=== PATIENT | female | born 1955 | race Caucasian/White ===

== ENCOUNTER → 2017-01-02 | Outpatient (CLI) | payer OTHER ==
--- NOTE | 2017-01-02 08:00 | US ---
EXAMINATION TYPE: US abdomen complete DATE OF EXAM: 01/02/2017 COMPARISON: NONE CLINICAL HISTORY: Epigastric pain R10.13. Abd pain with cramping for 2 years EXAM MEASUREMENTS: Liver Length: 13.3 cm Gallbladder Wall: 0.3 cm CBD: 0.5 cm Spleen: 10.5 cm Right Kidney: 9.6 x 4.3 x 3.7 cm Left Kidney: 9.8 x 3.4 x 4.1 cm Pancreas: wnl Liver: intercostal views due to bowel gas, wnl Gallbladder: wall thickening is upper limits of normal and internal debris seen Evidence for sonographic Hines's sign: no CBD: wnl Spleen: wnl Right Kidney: wnl Left Kidney: wnl Upper IVC: wnl Abd Aorta: wnl The liver is homogenous. The intrahepatic portion of the IVC and proximal abdominal aorta are within normal limits. There is no evidence of cholelithiasis. Common bile duct is unremarkable. The visu alized portions of the pancreas are homogenous. The spleen is unremarkable. Kidneys are symmetric a nd free of hydronephrosis. No renal lesions are seen. IMPRESSION: No sonographic evidence of cholelithiasis or cholecystitis. Unremarkable abdominal ultras ound.
== END | disposition home or self-care (01) ==
LOC: RADUSWWP 06:51
PROVIDERS: ATTEND Family Medicine
DX: R10.13 Epigastric pain (principal)
CPT/HCPCS: 76700

== ENCOUNTER → 2017-01-26 | Outpatient (CLI) | payer OTHER ==
[2017-01-26 13:57] LABS: Bilirubin, Delta 0.2 mg/dL (0.0-0.2); Total Bilirubin 0.5 mg/dL (0.2-1.3); Total Protein 7.3 g/dL (6.3-8.2)
== END | disposition home or self-care (01) ==
LOC: LABWHC1 12:55
PROVIDERS: ATTEND Surgery
DX: R10.9 Unspecified abdominal pain (principal)
CPT/HCPCS: 36415; 80076; 82150; 83690

== ENCOUNTER 2017-02-13 08:13 | Day surgery (SDC) | payer OTHER ==
[2017-02-10 09:08] VITALS: BMI 32.3
[~2017-02-13 08:13] MED LIST: LACTATED RINGERS 1,000 ML IV SCH; LIDOCAINE 1% 20 ML VIAL (10MG/ML) FOR IV START INTRADERMA PRN
[2017-02-13 08:34] VITALS: RESP 16; TEMP 97.7
[2017-02-13] MEDS ORDERED: ONDANSETRON 4 MG/2 ML VIAL ONE (09:36)
[2017-02-13] MEDS ORDERED: MIDAZOLAM 2 MG/2 ML VIAL ONE (09:36)
[2017-02-13] MEDS ORDERED: PROPOFOL 10 MG/ML 20 ML VIAL IV ONE (09:36)
[2017-02-13] MEDS ORDERED: LIDOCAINE 1% INJ 10MG/ML (20 ML MDV) ONE (09:36)
--- NOTE | 2017-02-13 10:05 | P.PCN ---
Date of Procedure: 02/13/17 Procedure(s) Performed: Procedure: Esophagogastroduodenoscopy and biopsy. Preoperative diagnosis: Epigastric pain and history of reflux. Postoperative diagnosis: 1. Small sliding hiatal hernia with no obvious esophagitis or complicated reflux disease. 2. Mild antral gastritis. 3. Multiple biopsies obtained from the duodenum, antrum and esophagus. Preparation sedation: Was provided by anesthesia. Brief clinical history: The patient is a 61-year-old female with history of reflux who continues to have issues with epigastric pain and nonspecific upper abdominal symptoms. She was found to have sludge in the gallbladder and a cholecystectomy is planned. The patient was referred for this evaluation prior to her surgery. Procedure: With the patient on her left lateral decubitus position and after informed consent and adequate sedation, I passed the Olympus-GIF 160 video upper endoscope through the cricopharyngeus down the esophagus. GE junction was around 39 cm from the incisors and there was a small sliding hiatal hernia. The esophagus did not show any obvious esophagitis or complicated reflux disease. The endoscope was then passed into the stomach which was insufflated with air and inspected in detail including the retroflex view in the cardia. There was some mottling and erythema consistent with mild gastritis but no ulcers or erosions. Pyloric channel, duodenal bulb, post bulbar area and descending duodenum appeared within normal limits. I obtained multiple biopsies from the duodenum, antrum and esophagus then the endoscope was withdrawn. The patient tolerated the procedure well. Plan: The patient was reassured. Will await pathology results. She will follow -up with you as planned.
[2017-02-13 10:43] VITALS: BP 109/61; PULSE 44
== END 2017-02-13 11:00 | disposition home or self-care (01) ==
LOC: ORWHC2ENDO 08:13
DX: K21.0 Gastro-esophageal reflux disease with esophagitis (principal); K44.9 Diaphragmatic hernia without obstruction or gangrene; K20.0 Eosinophilic esophagitis; I48.91 Unspecified atrial fibrillation; Z79.01 Long term (current) use of anticoagulants; Z87.891 Personal history of nicotine dependence; Z79.899 Other long term (current) drug therapy
CPT/HCPCS: 88305; 88342; 43239; J2250; J2405; J2001; J2704

== ENCOUNTER → 2018-01-04 | Outpatient (CLI) | payer OTHER ==
[2018-01-04 10:21] LABS: HGB 13.8 gm/dL (11.4-16.0); MCH 29.8 pg (25.0-35.0); MCHC 33.5 g/dL (31.0-37.0); MCV 88.8 fL (80.0-100.0); Mean Platelet Volume 8.3; Platelet Count 169 k/uL (150-450); RBC 4.62 m/uL (3.80-5.40); RDW 13.6 % (11.5-15.5); WBC 5.2 k/uL (3.8-10.6)
[2018-01-04 10:40] LABS: Calcium 9.4 mg/dL (8.4-10.2); Potassium 4.2 mmol/L (3.5-5.1); Total Bilirubin 0.5 mg/dL (0.2-1.3); Total Protein 6.8 g/dL (6.3-8.2)
== END | disposition home or self-care (01) ==
LOC: LABWHC1 09:30
PROVIDERS: ATTEND Surgery
DX: K81.1 Chronic cholecystitis (principal)
CPT/HCPCS: 36415; 80053; 85027

== ENCOUNTER 2019-11-02 21:14 | Emergency (ER) | payer MEDICARE, OTHER ==
[2019-11-02] MEDS ORDERED: diphenhydrAMINE 50 MG CAP PO STA (21:49)
[2019-11-02] MEDS ORDERED: DEXAMETHASONE SOD PHOSPHATE 10 MG/ML 1 ML VIAL IM STA (21:49)
--- NOTE | 2019-11-02 21:52 | ED ---
Allergic Reaction HPI - General Source: patient, family Mode of arrival: ambulatory <Sandro Aguilera - Last Filed: 11/02/19 22:44> <Kathie Anderson - Last Filed: 11/11/19 00:03> - General Chief complaint: Allergic Reaction Stated complaint: Allergic reaction Time Seen by Provider: 11/02/19 21:29 - History of Present Illness Initial Comments: Patient is 64-year-old female presenting to emergency department chief complaint a rash. States the rash began yesterday on the arms and has been gradually moving proximally to her torso. States she woke up this morning is noted swelling and bilateral periorbital region along with a facial rash. Patient reports the rash is itchy but she has been able to alleviate some of discomfort with Benadryl. Denies odontophagia dysphagia or dyspnea. Denies any recent fevers or chills. States prior to the onset of symptoms, she was mixing topsoil and miracle grow without gloves. Denies any nausea vomiting diarrhea. (Sandro Aguilera) - Related Data Home Medications Medication Instructions Recorded Confirmed Metoprolol Tartrate [Lopressor] 12.5 mg PO QAM 01/19/18 11/08/19 Warfarin [Coumadin] 4 mg PO MOWESA 01/19/18 11/08/19 Warfarin [Coumadin] 6 mg PO SUTUTHFR 01/19/18 11/08/19 Neomyc/Bacit/Polymyx/Hydrocort 1 applic TOPICAL ONCE PRN 11/08/19 11/08/19 [Cortisporin Ointment] diphenhydrAMINE [Benadryl] 25 mg PO ONCE PRN 11/08/19 11/08/19 Previous Rx's Medication Instructions Recorded Famotidine [Pepcid] 20 mg PO BID #14 tablet 11/08/19 hydrOXYzine HCL [Atarax] 25 mg PO TID PRN #21 tab 11/08/19 predniSONE [Deltasone] 20 mg PO BID #14 tab 11/08/19 Allergies Allergy/AdvReac Type Severity Reaction Status Date / Time premed prior to anesthesia AdvReac Nausea & Uncoded 11/08/19 09:58 Vomiting,low b/p,low heart rate Review of Systems ROS Other: All systems not noted in ROS Statement are negative. <Sandro Aguilera - Last Filed: 11/02/19 22:44> ROS Other: All systems not noted in ROS Statement are negative. <Kathie Anderson Domingo - Last Filed: 11/11/19 00:03> ROS Statement: Those systems with pertinent positive or pertinent negative responses have been documented in the HPI. Past Medical History Past Medical History: Atrial Fibrillation Additional Past Medical History / Comment(s): gallbladder sludge,states "feels like I am bloated and gassy,uncomfortable rt upper abd quad." History of Any Multi-Drug Resistant Organisms: None Reported Past Surgical History: Cholecystectomy Additional Past Surgical History / Comment(s): BILAT TENNIS ELBOW REPAIR. CATARACTS BILAT. REPAIR OF HOLE IN RT EYE Past Anesthesia/Blood Transfusion Reactions: No Reported Reaction Additional Past Anesthesia/Blood Transfusion Reaction / Comment(s): no hx blood transfusion Past Psychological History: No Psychological Hx Reported Smoking Status: Former smoker Past Alcohol Use History: None Reported Past Drug Use History: None Reported - Past Family History Mother Family Medical History: No Reported History Sister(s) Family Medical History: Cancer Additional Family Medical History / Comment(s): blood CA <Sandro Aguilera - Last Filed: 11/02/19 22:44> General Exam Limitations: no limitations General appearance: alert, in no apparent distress Head exam: Present: atraumatic, normocephalic, normal inspection Eye exam: Present: normal appearance, PERRL, EOMI, other (Periorbital swelling) Pupils: Present: normal accommodation ENT exam: Present: normal exam, normal oropharynx, mucous membranes moist Neck exam: Present: normal inspection, full ROM Respiratory exam: Present: normal lung sounds bilaterally. Absent: respiratory distress, wheezes, rales Cardiovascular Exam: Present: regular rate, normal rhythm, normal heart sounds Extremities exam: Present: normal inspection, full ROM Back exam: Present: normal inspection, full ROM Neurological exam: Present: alert, oriented X3 Psychiatric exam: Present: normal affect, normal mood Skin exam: Present: warm, dry, intact, normal color <Sandro Aguilera - Last Filed: 11/02/19 22:44> Course Vital Signs 11/02/19 11/02/19 21:23 23:01 Temperature 98.2 F 98.1 F Pulse Rate 98 50 L Respiratory 18 16 Rate Blood Pressure 153/85 135/87 O2 Sat by Pulse 100 97 Oximetry Medical Decision Making <Sandro Aguilera - Last Filed: 11/02/19 22:44> <Kathie Anderson - Last Filed: 11/11/19 00:03> - Medical Decision Making Patient is 64-year-old female presenting to the emergency room with a chief complaint of a rash. This appears to be a papular rash that is itchy in nature, nonblanching. It initially started on the hands and moved proximally to the torso and is now on the face with some periorbital edema. No suspicion for periorbital or orbital cellulitis. I suspect is secondary to chemical exposure from topsoil and miracle grow mix. Patient given 10 mg of Decadron in the ED and Benadryl. On reevaluation patient reports improvement in symptoms. The erythema on the face has improved. The periorbital edema is also decreased. Patient will be discharged with a taper course of prednisone. Also advised to take Benadryl when necessary for itching. Patient is not in any respiratory distress. No signs of odontophagia dysphagia. Return parameters were thoroughly discussed with physician was understanding and agreeable. Case discussed with physician. (Sandro Aguilera) I was available for consultation in the emergency department. The history and physical exam were done by the midlevel provider. I was consulted for this patients care. I reviewed the case with the midlevel provider and based on their presentation of the patient, I agree with the assessment, medical decision making and plan of care as documented. Chart was dictated using [employer] dictation software. Attempts were made to correct any dictation errors however some typographical errors may persist. Patient was seen during a national state of emergency due to the Covid-19 pandemic. (Kathie Anderson) Disposition Is patient prescribed a controlled substance at d/c from ED?: No Time of Disposition: 22:41 <Sandro Aguilera - Last Filed: 11/02/19 22:44> <Kathie Anderson - Last Filed: 11/11/19 00:03> Clinical Impression: Allergic reaction to chemical substance Disposition: HOME SELF-CARE Condition: Stable Instructions (If sedation given, give patient instructions): Urticaria (ED) Additional Instructions: Continue taking prescribe medication. Return to emergency department if symptoms worsen. Referrals: Edson Gaviria MD [Primary Care Provider] - 1-2 days
[2019-11-02 23:02] VITALS: BP 135/87; PULSE 50; RESP 16; TEMP 98.1
== END 2019-11-02 23:06 | disposition home or self-care (01) ==
LOC: EC 21:14
DX: R21 Rash and other nonspecific skin eruption (principal); T50.995A Adverse effect of other drugs, medicaments and biological substances, initial encounter; I48.91 Unspecified atrial fibrillation; Z79.01 Long term (current) use of anticoagulants; Z79.899 Other long term (current) drug therapy; Z88.8 Allergy status to other drugs, medicaments and biological substances; Z87.891 Personal history of nicotine dependence; Z90.49 Acquired absence of other specified parts of digestive tract
CPT/HCPCS: 96372; 99283; J1100

== ENCOUNTER 2019-11-08 08:51 | Emergency (ER) | payer MEDICARE, OTHER ==
[2019-11-08 08:57] VITALS: RESP 18; TEMP 98
[2019-11-08] MEDS ORDERED: methylPREDNISolone SOD SUCCI 125 MG/2 ML VIAL IV STA (09:12)
[2019-11-08] MEDS ORDERED: FAMOTIDINE 20 MG/2 ML VIAL IV STA (09:12)
--- NOTE | 2019-11-08 09:22 | ED ---
Allergic Reaction HPI - General Chief complaint: Allergic Reaction Stated complaint: rash Time Seen by Provider: 11/08/19 08:57 Source: patient, RN notes reviewed, old records reviewed Mode of arrival: ambulatory Limitations: no limitations - History of Present Illness Initial Comments: This is a 64-year-old female with a history of A. fib who is on Coumadin who has never had problems with ALLERGIES in the past who states he was working in her garden without gloves about a week ago mixing miracle grow with her and they say she started developing a rash. She was seen in the emergency department and placed on steroids and antihistamines the rash did seem to not improve much. She followed up with her doctor was placed on Atarax is still without much improvement. She saw the practitioner today in her doctor's office and was sent here for further evaluation. She complains of generalized rash with itching also some numbness around her facial area. No difficulty swallowing no difficulty with breathing no fevers chills nausea vomiting sweats no focal deficits. No other modifying factors. MD Complaint: allergic reaction - Related Data Home Medications Medication Instructions Recorded Confirmed Metoprolol Tartrate [Lopressor] 12.5 mg PO QAM 01/19/18 11/08/19 Warfarin [Coumadin] 4 mg PO MOWESA 01/19/18 11/08/19 Warfarin [Coumadin] 6 mg PO SUTUTHFR 01/19/18 11/08/19 Neomyc/Bacit/Polymyx/Hydrocort 1 applic TOPICAL ONCE PRN 11/08/19 11/08/19 [Cortisporin Ointment] diphenhydrAMINE [Benadryl] 25 mg PO ONCE PRN 11/08/19 11/08/19 Previous Rx's Medication Instructions Recorded Famotidine [Pepcid] 20 mg PO BID #14 tablet 11/08/19 hydrOXYzine HCL [Atarax] 25 mg PO TID PRN #21 tab 11/08/19 predniSONE [Deltasone] 20 mg PO BID #14 tab 11/08/19 Allergies Allergy/AdvReac Type Severity Reaction Status Date / Time premed prior to anesthesia AdvReac Nausea & Uncoded 11/08/19 09:58 Vomiting,low b/p,low heart rate Review of Systems ROS Statement: Those systems with pertinent positive or pertinent negative responses have been documented in the HPI. ROS Other: All systems not noted in ROS Statement are negative. Past Medical History Past Medical History: Atrial Fibrillation Additional Past Medical History / Comment(s): gallbladder sludge,states "feels like I am bloated and gassy,uncomfortable rt upper abd quad." History of Any Multi-Drug Resistant Organisms: None Reported Past Surgical History: Cholecystectomy Additional Past Surgical History / Comment(s): BILAT TENNIS ELBOW REPAIR. CATARACTS BILAT. REPAIR OF HOLE IN RT EYE Past Anesthesia/Blood Transfusion Reactions: No Reported Reaction Additional Past Anesthesia/Blood Transfusion Reaction / Comment(s): no hx blood transfusion Past Psychological History: No Psychological Hx Reported Smoking Status: Former smoker Past Alcohol Use History: None Reported Past Drug Use History: None Reported - Past Family History Mother Family Medical History: No Reported History Sister(s) Family Medical History: Cancer Additional Family Medical History / Comment(s): blood CA General Exam - General Exam Comments Initial Comments: This is a well-developed well-nourished awake alert oriented 3 female who was noted to be rubbing her extremities and torso state he is does make her feel better Limitations: no limitations General appearance: alert, anxious Head exam: Present: atraumatic, normocephalic, normal inspection Eye exam: Present: normal appearance, PERRL, EOMI. Absent: scleral icterus, conjunctival injection, periorbital swelling ENT exam: Present: normal exam, mucous membranes moist Neck exam: Present: normal inspection, full ROM, other (No stridor JVD or bruits). Absent: tenderness, meningismus, lymphadenopathy Respiratory exam: Present: normal lung sounds bilaterally. Absent: respiratory distress, wheezes, rales, rhonchi, stridor Cardiovascular Exam: Present: irregular rhythm, normal heart sounds. Absent: systolic murmur, diastolic murmur, rubs, gallop, clicks GI/Abdominal exam: Present: soft, normal bowel sounds. Absent: distended, tenderness, guarding, rebound, rigid Extremities exam: Present: normal inspection, full ROM, normal capillary refill. Absent: tenderness, pedal edema, joint swelling, calf tenderness Back exam: Present: normal inspection Neurological exam: Present: alert, oriented X3, CN II-XII intact Psychiatric exam: Present: normal affect, normal mood Skin exam: Present: warm, dry, intact, erythema (Erythematous rash seen to the integument and torso also about the face. He does appear to be consistent with ALLERGIC reaction. No open wound seen). Absent: rash Course Vital Signs 11/08/19 11/08/19 08:52 10:07 Temperature 98 F Pulse Rate 60 64 Respiratory 18 18 Rate Blood Pressure 141/72 126/67 O2 Sat by Pulse 99 97 Oximetry Medical Decision Making - Medical Decision Making I did discuss the findings with the patient she is feeling improved after the m edication was given I did discuss the case with Chely from Dr. Gaviria's office. Patient will be discharged she will continue on Pepcid on Atarax also longer course of steroids. We did discuss in length concept of avoiding heat and using cold compresses and not scratching any itchy areas. Patient is in agreement with this she'll be discharged. Additionally patient does have elevated INR will hold her Coumadin for today and resume tomorrow follow-up with cardiology who does manage her Coumadin level. - Lab Data Result diagrams: 11/08/19 09:20 11/08/19 09:20 Lab Results 11/08/19 11/08/19 11/08/19 Range/Units 09:20 09:20 09:20 WBC 9.8 (3.8-10.6) k/uL RBC 5.10 (3.80-5.40) m/uL Hgb 15.6 (11.4-16.0) gm/dL Hct 47.3 H (34.0-46.0) % MCV 92.9 (80.0-100.0) fL MCH 30.6 (25.0-35.0) pg MCHC 33.0 (31.0-37.0) g/dL RDW 13.8 (11.5-15.5) % Plt Count 223 (150-450) k/uL Neutrophils % 43 % Lymphocytes % 42 % Monocytes % 5 % Eosinophils % 8 % Basophils % 1 % Neutrophils # 4.2 (1.3-7.7) k/uL Lymphocytes # 4.1 (1.0-4.8) k/uL Monocytes # 0.5 (0-1.0) k/uL Eosinophils # 0.8 H (0-0.7) k/uL Basophils # 0.1 (0-0.2) k/uL PT 56.1 H (9.0-12.0) sec INR 5.6 H* (<1.2) Sodium 139 (137-145) mmol/L Potassium 3.8 (3.5-5.1) mmol/L Chloride 108 H (98-107) mmol/L Carbon Dioxide 24 (22-30) mmol/L Anion Gap 7 mmol/L BUN 21 H (7-17) mg/dL Creatinine 0.94 (0.52-1.04) mg/dL Est GFR (CKD-EPI)AfAm 73 (>60 ml/min/1.73 sqM) Est GFR (CKD-EPI)NonAf 64 (>60 ml/min/1.73 sqM) Glucose 80 (74-99) mg/dL Calcium 9.1 (8.4-10.2) mg/dL Total Bilirubin 0.5 (0.2-1.3) mg/dL AST 22 (14-36) U/L ALT 16 (4-34) U/L Alkaline Phosphatase 61 (38-126) U/L Creatine Kinase 40 (30-135) U/L C-Reactive Protein <5.0 (<10.0) mg/L Total Protein 7.1 (6.3-8.2) g/dL Albumin 4.3 (3.5-5.0) g/dL Disposition Clinical Impression: Allergic reaction, Allergic reaction to chemical substance, Elevated INR, Rash Disposition: HOME SELF-CARE Condition: Good Instructions (If sedation given, give patient instructions): Cold Compress or Soak (ED), Allergies (ED), Acute Rash (ED) Additional Instructions: Medications transmitted by E scribe to your preferred pharmacy Prescriptions: hydrOXYzine HCL [Atarax] 25 mg PO TID PRN #21 tab PRN Reason: Itching predniSONE [Deltasone] 20 mg PO BID #14 tab Famotidine [Pepcid] 20 mg PO BID #14 tablet Is patient prescribed a controlled substance at d/c from ED?: No Referrals: Edson Gaviria MD [Primary Care Provider] - 1-2 days
[2019-11-08 09:34] LABS: Basophils # (A) 0.1 k/uL (0-0.2); Basophils % (A) 1 %; Eosinophils # (A) 0.8 k/uL (0-0.7); Eosinophils % (A) 8 %; HCT 47.3 % (34.0-46.0); HGB 15.6 gm/dL (11.4-16.0); Lymphocytes # (A) 4.1 k/uL (1.0-4.8); Lymphocytes % (A) 42 %; MCH 30.6 pg (25.0-35.0); MCV 92.9 fL (80.0-100.0); Mean Platelet Volume 9.5; Monocytes # (A) 0.5 k/uL (0-1.0); Monocytes % (A) 5 %; Neutrophils # (A) 4.2 k/uL (1.3-7.7); Neutrophils % (A) 43 %; Platelet Count 223 k/uL (150-450); RDW 13.8 % (11.5-15.5); WBC 9.8 k/uL (3.8-10.6)
[2019-11-08 09:57] LABS: Prothrombin Time 56.1 sec (9.0-12.0)
[2019-11-08 09:58] LABS: ALT 16 U/L (4-34); AST 22 U/L (14-36); African American GFR (CKD) 73 (>60 ml/min/1.73 sqM); Albumin 4.3 g/dL (3.5-5.0); Alkaline Phosphatase 61 U/L (38-126); Anion Gap 7 mmol/L; Blood Urea Nitrogen 21 mg/dL (7-17); C Reactive Protein <5.0 mg/L (<10.0); Calcium 9.1 mg/dL (8.4-10.2); Carbon Dioxide 24 mmol/L (22-30); Chloride 108 mmol/L (98-107); Creatine Kinase 40 U/L (30-135); Glucose 80 mg/dL (74-99); Non-African American GFR(CKD) 64 (>60 ml/min/1.73 sqM); Potassium 3.8 mmol/L (3.5-5.1); Sodium 139 mmol/L (137-145); Total Bilirubin 0.5 mg/dL (0.2-1.3); Total Protein 7.1 g/dL (6.3-8.2)
[2019-11-08 10:12] LABS: INR 5.6 (<1.2)
[2019-11-08] MEDS ORDERED: SODIUM CHLORIDE 0.9% 500 ML 500 ML IV STA (10:17)
[2019-11-08 11:25] VITALS: BP 110/67; PULSE 74
== END 2019-11-08 11:23 | disposition home or self-care (01) ==
LOC: EC 08:51
DX: T78.40XA Allergy, unspecified, initial encounter (principal); T65.91XA Toxic effect of unspecified substance, accidental (unintentional), initial encounter; R79.1 Abnormal coagulation profile; R21 Rash and other nonspecific skin eruption; I48.91 Unspecified atrial fibrillation; Z79.01 Long term (current) use of anticoagulants; Z88.4 Allergy status to anesthetic agent; Z87.891 Personal history of nicotine dependence
CPT/HCPCS: 36415; 80053; 82550; 85025; 85610; 86140; 99284; 96374; 96375; 96361; J2930

== ENCOUNTER 2020-11-02 09:47 | Emergency (ER) | payer MEDICARE ==
[2020-11-02 10:11] VITALS: RESP 18; TEMP 99.1
[2020-11-02] MEDS ORDERED: KETOROLAC 15 MG/ML 1 ML VIAL IM STA (10:19)
--- NOTE | 2020-11-02 10:23 | ED ---
General Adult HPI - General Chief complaint: Back Pain/Injury Stated complaint: lt sided pain Time Seen by Provider: 11/02/20 10:05 Source: patient, RN notes reviewed Mode of arrival: ambulatory Limitations: no limitations - History of Present Illness Initial comments: Patient is a pleasant 65-year-old female presenting to the emergency Department with left buttocks and hip discomfort. Patient does have history of chronic back and hip pain and does see a chiropractor once a month. Patient has seen her chiropractor the past 3 days without improvement of symptoms. Chiropractor was suspicious patient may have a blood clot and advised her to come here. Patient states discomfort is similar to her chronic pain however a little bit worse. Patient denies any calf pain or swelling. No chest pain or dyspnea. No weakness. - Related Data Home Medications Medication Instructions Recorded Confirmed Metoprolol Tartrate [Lopressor] 12.5 mg PO DAILY@1200 01/19/18 11/02/20 Warfarin Sodium 4 mg PO TU@1200 11/02/20 11/02/20 Warfarin Sodium 6 mg PO SUMOWETHFRSA@1200 11/02/20 11/02/20 Previous Rx's Medication Instructions Recorded Cyclobenzaprine [Flexeril] 10 mg PO TID PRN #12 tablet 11/02/20 Allergies Allergy/AdvReac Type Severity Reaction Status Date / Time premed prior to anesthesia AdvReac Nausea & Uncoded 11/02/20 10:56 Vomiting,low b/p,low heart rate Review of Systems ROS Statement: Those systems with pertinent positive or pertinent negative responses have been documented in the HPI. ROS Other: All systems not noted in ROS Statement are negative. Constitutional: Denies: fever Eyes: Denies: eye pain ENT: Denies: ear pain Respiratory: Denies: cough Cardiovascular: Denies: chest pain Endocrine: Denies: fatigue Gastrointestinal: Denies: abdominal pain Genitourinary: Denies: dysuria Musculoskeletal: Reports: as per HPI Skin: Denies: rash Neurological: Denies: weakness Past Medical History Past Medical History: Atrial Fibrillation Additional Past Medical History / Comment(s): gallbladder sludge,states "feels like I am bloated and gassy,uncomfortable rt upper abd quad." History of Any Multi-Drug Resistant Organisms: None Reported Past Surgical History: Cholecystectomy Additional Past Surgical History / Comment(s): BILAT TENNIS ELBOW REPAIR. CATARACTS BILAT. REPAIR OF HOLE IN RT EYE Past Anesthesia/Blood Transfusion Reactions: No Reported Reaction Additional Past Anesthesia/Blood Transfusion Reaction / Comment(s): no hx blood transfusion Past Psychological History: No Psychological Hx Reported Past Alcohol Use History: None Reported Past Drug Use History: None Reported - Past Family History Mother Family Medical History: No Reported History Sister(s) Family Medical History: Cancer Additional Family Medical History / Comment(s): blood CA General Exam Limitations: no limitations General appearance: alert, in no apparent distress Head exam: Present: normocephalic Eye exam: Present: normal appearance Neck exam: Present: normal inspection Respiratory exam: Present: normal lung sounds bilaterally Cardiovascular Exam: Present: regular rate, normal rhythm Expanded Peripheral pulses: 2+: Posterior Tibialis (L), Dorsalis Pedis (L) GI/Abdominal exam: Present: soft. Absent: tenderness Extremities exam: Present: normal inspection, full ROM, other (No tenderness in the areas of concern. No sacral tenderness. No hip tenderness. No leg tenderness.). Absent: tenderness Back exam: Present: normal inspection. Absent: tenderness Neurological exam: Present: alert. Absent: motor sensory deficit Expanded Motor strength exam: RUE: 5, LUE: 5, RLE: 5, LLE: 5 Psychiatric exam: Present: normal affect, normal mood Skin exam: Present: normal color Course Vital Signs 11/02/20 11/02/20 10:01 11:59 Temperature 99.1 F Pulse Rate 57 L Respiratory 18 18 Rate Blood Pressure 151/107 108/77 O2 Sat by Pulse 99 Oximetry Medical Decision Making - Medical Decision Making Patient reevaluated and updated. Patient again states symptoms are similar to previous back problems however lasting longer than normal. Patient is advised follow-up with her primary care physician as well as orthopedics. - Radiology Data Radiology results: report reviewed (Ultrasound negative for DVT), image reviewed (Left hip and pelvis x-ray revealed no acute process. Lumbar x-ray shows severe disc space narrowing L5-S1. Redemonstrated.) Disposition Clinical Impression: Lumbar radiculopathy Disposition: HOME SELF-CARE Condition: Stable Instructions (If sedation given, give patient instructions): Acute Low Back Pain (ED) Additional Instructions: Please do follow-up with your primary care physician as well as orthopedics in the next couple of days for recheck. Return for weakness, loss of control of bowel or bladder, worsening symptoms or other concerns. Prescription for muscle relaxers has been sent to pharmacy. Have primary care physician and orthopedics review x-rays. Prescriptions: Cyclobenzaprine [Flexeril] 10 mg PO TID PRN #12 tablet PRN Reason: Pain Is patient prescribed a controlled substance at d/c from ED?: No Referrals: Edson Gaviria MD [Primary Care Provider] - 1-2 days Nirmal Castro DO [Doctor of Osteopathic Medicine] - 1-2 days Time of Disposition: 12:19
--- NOTE | 2020-11-02 11:36 | US ---
EXAMINATION TYPE: US venous doppler duplex LE LT DATE OF EXAM: 11/02/2020 11:27 AM COMPARISON: NONE CLINICAL HISTORY: pain. left groin and hip pain. No hx DVT. No redness. No swelling. SIDE PERFORMED: Left TECHNIQUE: The lower extremity deep venous system is examined utilizing real time linear array sonog lina with graded compression, doppler sonography and color-flow sonography. VESSELS IMAGED: Common Femoral Vein Deep Femoral Vein Greater Saphenous Vein * Femoral Vein Popliteal Vein Small Saphenous Vein * Proximal Calf Veins (* superficial vessels) Left Leg: Negative for DVT IMPRESSION: Grayscale, color doppler, spectral doppler imaging performed of the deep veins of the lo wer extremities. There is normal flow, compressibility, vascular waveforms.
--- NOTE | 2020-11-02 12:10 | XR ---
EXAMINATION TYPE: XR Hip LT and AP Pelvis DATE OF EXAM: 11/02/2020 COMPARISON: NONE HISTORY: Left hip pain TECHNIQUE: A single AP view of the pelvis is obtained. Two views of the left hip are obtained. FINDINGS: There is no acute fracture/dislocation evident in the pelvis. The hip and sacroiliac join ts appear symmetric and unremarkable. The overlying soft tissue appears unremarkable. Two views of left hip show no acute fracture or dislocation. No focal lytic or sclerotic lesion seen in the proximal left femur. The overlying soft tissue is unremarkable. There are mild degenerative changes of both hips and the lower lumbar spine. IMPRESSION: There is no acute fracture or dislocation in the pelvis or left hip.
--- NOTE | 2020-11-02 12:12 | XR ---
EXAMINATION TYPE: XR lumbar spine 2 or 3V DATE OF EXAM: 11/02/2020 CLINICAL HISTORY: Low back pain. TECHNIQUE: Frontal and lateral images of the lumbar spine are obtained. COMPARISON: CT abdomen and pelvis February 29, 2016 FINDINGS: There are 5 lumbar type vertebral bodies redemonstrated. The lumbar spine shows slight do rsal convex scoliotic curvature positioning centered L4 level similar to prior. Alignment is satisfac tory on lateral images. Vertebral body heights are within normal limits. Moderate to severe disc spac e narrowing with vacuum disc phenomenon L5-S1 level redemonstrated. Facet arthropathy lower lumbar s pine. Cholecystectomy clips are now present. Suggestion of new splenomegaly projecting below left T12 rib lateral left mid abdomen, correlate clinically. IMPRESSION: As above.
[2020-11-02 12:46] VITALS: BP 131/82; PULSE 61
== END 2020-11-02 13:30 | disposition home or self-care (01) ==
LOC: EC 09:47
DX: M54.16 Radiculopathy, lumbar region (principal); M25.552 Pain in left hip; I48.91 Unspecified atrial fibrillation; Z79.01 Long term (current) use of anticoagulants; Z88.4 Allergy status to anesthetic agent
CPT/HCPCS: 72100; 73502; 93971; 99284; 96372; J1885

== ENCOUNTER → 2022-03-31 | Outpatient (CLI) | payer MEDICARE, OTHER | END | disposition home or self-care (01) | LOC: LABPAT 08:06 | PROVIDERS: ATTEND Obstetrics & Gynecology | DX: Z01.812 Encounter for preprocedural laboratory examination (principal); N39.3 Stress incontinence (female) (male); N81.2 Incomplete uterovaginal prolapse | CPT/HCPCS: 87086 ==

== ENCOUNTER 2022-04-05 08:47 | Day surgery (SDC) | payer MEDICARE, OTHER ==
--- NOTE | 2022-04-04 16:36 | P.HPIHPCON ---
History of Present Illness H&P Date: 04/04/22 Chief Complaint: Uterine prolapse Ms. Batres is a 66 year old presenting as a referral for uterovaginal prolapse. She first noticed the prolapse a few weeks ago and feels that she can easily touch her uterus with only half a fingertip. The bulging in the vagina bothers her, gets worse with standing, and worse with working long hours. She needs to reduce the bulge with her fingers to have bowel movements. She is not sexually active and does not desires to be. She has issues with bowel movements because she is scared to bear down, however, she does not have diarrhea or constipation. She feels that she empties her bladder completely. She does have leakage of urine with coughing, sneezing, laughing, and bearing down. She does kegels. She does not have any symptoms of urge incontinence and does not have trouble making it to the restroom when she has to urinate. She denies any postmenopausal bleeding. She denies vaginal discharge, itching, odor, irritation. Consent for Procedure: I have explained the operation/procedure to the patient, including the risks, benefits, side effects, alternative therapies (including not receiving the proposed treatment or service), the likelihood of the patient achieving his/her goals, and potential recuperation problems for the procedure/sedation/analgesia, as well as any blood products, if indicated. I also explained to the patient the risks, benefits and side effects of the alternatives, as well as the risks related to not receiving the proposed procedure, care, treatment, or services. - Cardiovascular Cardiovascular: Denies chest pain, Denies shortness of breath, Denies syncope - Gastrointestinal Gastrointestinal: Denies constipation, Denies diarrhea - Genitourinary (Female) Genitourinary: Reports prolapse symptoms, Reports stress incontinence, Denies urge incontinence, Denies urgency, Denies urinary frequency, Denies vaginal discharge, Denies vaginal itching, Denies vaginal odor - Menstruation Menstruation: Reports postmenopausal Past Medical History Past Medical History: Atrial Fibrillation Additional Past Medical History / Comment(s): uterus dropping into vagina area, affecting urination History of Any Multi-Drug Resistant Organisms: None Reported Past Surgical History: Cholecystectomy Additional Past Surgical History / Comment(s): BILAT TENNIS ELBOW REPAIR. C ATARACTS BILAT. REPAIR OF HOLE IN RT EYE Past Anesthesia/Blood Transfusion Reactions: No Reported Reaction Additional Past Anesthesia/Blood Transfusion Reaction / Comment(s): no hx blood transfusion Smoking Status: Former smoker - Past Family History Mother Family Medical History: No Reported History Additional Family Medical History / Comment(s): aneurysm after falling Sister(s) Family Medical History: Cancer Additional Family Medical History / Comment(s): blood CA Father Family Medical History: Myocardial Infarction ([place]) Medications and Allergies Home Medications Medication Instructions Recorded Confirmed Type Metoprolol Tartrate [Lopressor] 12.5 mg PO DAILY@1200 01/19/18 03/31/22 History Warfarin Sodium 4 mg PO TUSA@1200 11/02/20 03/31/22 History Warfarin Sodium 6 mg PO SUMOWETHFR@1200 11/02/20 03/31/22 History Allergies Allergy/AdvReac Type Severity Reaction Status Date / Time premed prior to anesthesia AdvReac Nausea & Uncoded 03/29/22 15:46 Vomiting,low b/p,low heart rate Surgical - Exam - Genitourinary Normal external female genitalia. PVR declined by patient, will check by having pt use restroom prior to going to OR and then checking while under anesthesia. Cervix visible at the introits, Stage 3 uterovaginal prolapse with valsalva. Cervix grossly normal appearing without lesions. Uterus small and mobile. No adnexal masses appreciated on bimanual exam. Anal wink reflex intact. Assessment and Plan Assessment: 66 y/o with Stage 3 uterovaginal prolapse and Stress Urinary Incontinence Plan: Proceed with surgery as scheduled Time with Patient: Less than 30
[~2022-04-05 08:47] MED LIST changes: +DEXAMETHASONE SOD PHOSPHATE 4 MG/ML 1 ML VIAL IV ONE; +HYDROmorphone 0.5 MG/0.5 ML SYRINGE IVP PRN; -LACTATED RINGERS 1,000 ML IV SCH; +LIDOCAINE 1% (10MG/ML) FOR IV START INTRADERMA PRN; -LIDOCAINE 1% 20 ML VIAL (10MG/ML) FOR IV START INTRADERMA PRN; +MIDAZOLAM 2 MG/2 ML VIAL IV PRN; +ONDANSETRON 4 MG/2 ML VIAL IVP ONE
[2022-04-05] MEDS: LACTATED RINGERS 1,000 ML IV SCH ×4 (09:42→23:02)
[2022-04-05] MEDS ORDERED: ONDANSETRON 4 MG/2 ML VIAL ONE (09:45)
[2022-04-05] MEDS ORDERED: KETOROLAC 15 MG/ML 1 ML VIAL ONE (11:15)
[2022-04-05] MEDS ORDERED: ePHEDrine 50 MG/ML 1 ML VIAL ONE (11:15)
[2022-04-05] MEDS ORDERED: PROPOFOL 10 MG/ML 20 ML VIAL IV ONE (11:15)
[2022-04-05] MEDS ORDERED: GLYCOPYRROLATE 0.2 MG/ML 2 ML VIAL ONE (11:15)
[2022-04-05] MEDS ORDERED: ROCURONIUM 10 MG/ML (5 ML VIAL) IV ONE (11:15)
[2022-04-05] MEDS ORDERED: NEOSTIGMINE 1 MG/ML 10 ML VIAL ONE (11:15)
[2022-04-05] MEDS ORDERED: LIDOCAINE 2% INJ 20 MG/ML (2 ML VIAL) ONE (11:15)
[2022-04-05] MEDS ORDERED: SUCCINYLCHOLINE CHLORIDE 200 MG/10 ML VIAL IV ONE (11:15)
[2022-04-05] MEDS ORDERED: HYDROmorphone (PF) 1 MG/ML ONE (11:15)
[2022-04-05] MEDS ORDERED: MIDAZOLAM 2 MG/2 ML VIAL ONE (11:15)
[2022-04-05] MEDS ORDERED: SODIUM CHLORIDE 0.9% 50 ML with ceFAZolin 2,000 MG IV ONE ×2 (11:18)
[2022-04-05] MEDS ORDERED: LACTATED RINGERS 1,000 ML IV ONE ×2 (12:25→15:27)
[2022-04-05] MEDS ORDERED: BUPIVACAINE (PF) 0.25% 30 ML VIAL SQ ONE ×2 (13:11→14:21)
[2022-04-05] MEDS ORDERED: LIDOCAINE 0.5%-EPI 1:200,000 50 ML VIAL SUBMUCOSAL ONE (13:46)
[2022-04-05] MEDS ORDERED: BACITRACIN ZINC 500 UNIT/GM OINT 28.4 GM TUBE TOPICAL ONE (14:30)
[2022-04-05] MEDS ORDERED: ZOLPIDEM 5 MG TAB PO PRN (14:39)
[2022-04-05] MEDS ORDERED: METOCLOPRAMIDE 5 MG/ML 2 ML VIAL IVP PRN (14:39)
[2022-04-05] MEDS ORDERED: diphenhydrAMINE 50 MG/ML 1 ML VIAL IVP PRN ×2 (14:39)
[2022-04-05] MEDS ORDERED: diphenhydrAMINE 50 MG CAP PO PRN (14:39)
[2022-04-05] MEDS ORDERED: ONDANSETRON 4 MG/2 ML VIAL IVP PRN (14:39)
[2022-04-05] MEDS ORDERED: diphenhydrAMINE 25 MG CAP PO PRN (14:39)
[2022-04-05] MEDS ORDERED: NALOXONE 0.4 MG/ML 1 ML VIAL IV PRN (14:39)
[2022-04-05] MEDS ORDERED: HYDROmorphone 0.5 MG/0.5 ML SYRINGE IVP PRN (14:40)
--- NOTE | 2022-04-05 16:59 | P.OP ---
Date of Procedure: 04/05/22 Preoperative Diagnosis: Stage 3 Uterovaginal Prolapse, Stress Urinary Incontinence Postoperative Diagnosis: Stage 3 Uterovaginal Prolapse, Stress Urinary Incontinence Procedure(s) Performed: Robotic Assisted Total Laparoscopic Hysterectomy, Bilateral Salpingo- Ophorectomy, Uterosacral Colpopexy, TVT Midurethral Sling, and Cystoscopy Implants: Transvaginal Tape Anesthesia: PRITI Surgeon: Purvi Shepard Weed Cutter #1: Rojas Brothers Estimated Blood Loss (ml): 100 IV fluids (ml): 1,400 Urine output (ml): 300 Pathology: other (uterus, bilateral fallopian tubes and ovaries) Condition: stable Disposition: floor Indications for Procedure: The patient is a 66 year old with longstanding stage 3 uterovaginal prolapse and stress urinary incontinence who desired surgical management. Hysterectomy with uterosacral colpopexy was recommended to the patient for vaginal suspension. TVT was also recommended for ADITI. The risks, benefits, and alternatives to surgery were discussed including risk of bleeding, infection, and damage to surrounding structures. The patient desired to proceed. She was consented for surgery. All of her questions were answered prior to the procedure. Operative Findings: Prior to being taken back to the operative room the patient was instructed to urinate so that I could obtain a postvoid residual as the patient was too un comfortable for this in the office. PVR was noted to be 25 cc once the Carl catheter was placed. The uterus was souneded to be 7 cm. Grossly unremarkable appearing fallopian tubes and ovaries. Excellent vaginal support was noted at the end of the case. Description of Procedure: Prior to the beginning of the procedure, the team paused to verify the patients identity, the procedure to be performed (in accordance with the consent,) and the correct side/site. The patient was positioned appropriately. All relevant images and results were properly labeled and displayed. We addressed antibiotic prophylaxis and fluids for irrigation as applicable to this patient. Any safety precautions were addressed. The patient was taken to the operating room where general anesthesia was induced without difficulty. She was then [facility] Positioning included placing her arms at her sides. After the patient was placed in what was felt to be a neurologically safe position, deep Trendelenburg position was tested prior to the operative procedure, to ensure that she would not move on the operating table. The patient was then prepped and draped in the normal sterile fashion for a combined abdominovaginal surgery. A Carl catheter was placed in the bladder for continuous drainage. Uterus was sounded to 7 cm. A medium V-Care manipulator was placed in the uterus for manipulation. Attention was then placed to the abdomen. A normal length Veress needle was introduced into the abdominal cavity while tenting the abdominal wall. Low pressure was noted confirming appropriate placement. The abdomen was then insufflated to 15 mmHg. The Veress needle was removed, and an 8 mm port was placed at the umbilical site where the laparoscope confirmed intraperitoneal placement and no evidence of injury from the trocar placement. Visualization of the intraabdominal cavity showed normal pelvic anatomy without evidence of adhesions. The port sites for the remainder of the case were then measured out and placed under direct visualization. On the left side, one 8 mm robotic assistant dean ports were placed and one 12 mm robotic assistant dean port was placed. On the right side, two 8 mm robotic assistant dean ports were placed. The [employer] robot was then brought to the operative field in a lateral docking style to the left of the patient and the robot was docked to the ports. All robotic instruments were brought into the pelvis under direct visualization with monopolar scissors in arm #1, the robotic laparoscopic in arm #2, vessel sealer in arm #3, and a prograsp in arm #4. Bilateral ureters were visualized through the peritoneum on the pelvic side garcia. The right IP was then cut and cauterized with vessel sealer after visualizing the right ureter. The right round ligament was cauterized and cut. Broad ligament was opened and bladder flap created. This was repeated on the left side. The peritoneum of the bilateral broad ligaments was then taken down and monopolar cautery used to skeletonize the uterine arteries bilaterally. During the course of this dissection, the anterior leaf of the broad ligament was also taken down over the anterior aspect of the uterus and cervix to create a bladder flap. The bladder was then dissected off the cervix and upper vagina with the monopolar scissors and gentle blunt dissection. The bilateral uterine arteries were then cauterized and divided at the level of the internal cervical os. Now both the uterosacral ligaments were tagged at midpoint with 0-Vicryl stitches. This was done after making sure that the ureter was safe. The monopolar cautery was used to make the colpotomy. Total hysterectomy was thus completed and uterus, along with the cervix was removed vaginally. Cuff was closed with V Lock sutures. An 0-Maxon stitch was taken from the right uterosacral ligament and then tied to the cuff and pubocervical fascia. This was then repeated on the right side with two 0- Maxon stitches from the left uterosacral ligament to the cuff and pubocervical fascia. Once these stitches were tied the the cul de sac narrowed. The robot was undocked from the trocars and brought out of the operative field. The remainder of the ports were removed under direct visualization, and the gas was allowed to escape. All skin incisions were closed with 4-0 Monocryl and dermabond. On vaginal exam, excellent support was noted. Attention was then turned to the TVT part of the procedure. Two sites were marked on the anterior abdominal wall with a marking pen, one 1 fingerbreadth to the left and the other 1 fingerbreadth to the right of the midline, just above the pubic bone. Attention was now turned to the vaginal field where a 18-Maldivian Carl catheter was already present, and the urine was drained. Retractors were used for visualization. The anterior vaginal wall over the location of the mid urethra was then injected with 1% lidocaine with epinephrine in the mid portion of the vagina and the lateral aspects heading to the inferior surface of the pubic bone bilaterally. Two Allis clamps were then placed approximately 2 cm apart with the mid portion of the Allis clamps corresponding to the mid portion of the urethra as determined by palpation of the Carl within the patient's urethra. A scalpel was then used to incise between the 2 Allis clamps, and Metzenbaum scissors were used to dissect the vaginal mucosa off the urethra heading to the inferior surface of the pubic bone bilaterally. The ZIIB[employer] Advantage Fit TVT trocar coupled to the plastic introducer sheath was now placed through the right sided anterior vaginal wall channel, and the trocar was rotated through the right retropubic space with careful attention being paid to stay beneath and behind the pubic bone as it rotated through the space up to the previously made jesus on the right anterior abdominal wall. The TVT trocar was uncoupled from the introducer sheath and the sheath was tagged and left in place. The TVT trocar was now placed into the second introducer sheath and positioned within the left anterior vaginal wall channel and rotated through the left retropubic space with careful attention being paid to stay beneath and behind the pubic bone as it rotated through this site up to the previously made jesus on the left anterior abdominal wall. 70-degree cystourethroscopy showed bilateral perforation of the trocar through the bladder. The trocars were removed bilateral and the above steps were repeated to drive the trocar behind the pubic bone through the retropubic space and through the abdominal wall at the marked site. 70-degree cystourethroscope was again used and confirmed that there was no trocar placement or any additional trauma to the bladder from either side, and no trauma to the urethra. Bilateral ureteral jets were visualized. Therefore, the bladder was drained, and the mesh was brought through the abdominal wall site. The mesh was brought to sit underneath of the urethra without any tensioning at all as determined by a hemostat used as a spacer between the urethra and the sling. The hemostat as a spacer was used to stabilize the position of the mesh as plastic sheaths were removed through the abdominal wall site. The skin wounds were closed with the use of skin glue after trimming the mesh. The vaginal wound was closed with a running stitch of 2-0 Vicryl. 1-inch vaginal packing coated with Bacitracin was used to pack the vagina at the end of the case as a precautionary measure. Hemostasis was noted to be excellent throughout, and final sponge, instrument, and needle count was noted to be correct. The patient was moved back to the preoperative holding area in stable condition having tolerated the procedure well.
[2022-04-05] MEDS: KETOROLAC 15 MG/ML 1 ML VIAL IVP SCH ×2 (17:40→23:02)
[2022-04-05] MEDS: ACETAMINOPHEN TAB 500 MG TAB PO SCH (17:48)
[2022-04-05] MEDS: SENNOSIDES-DOCUSATE SODIUM 1 EACH TAB PO SCH (20:26)
[2022-04-06] MEDS: ACETAMINOPHEN TAB 500 MG TAB PO SCH ×2 (00:31→06:00)
[2022-04-06] MEDS: KETOROLAC 15 MG/ML 1 ML VIAL IVP SCH ×2 (00:31→06:14)
[2022-04-06] MEDS: LACTATED RINGERS 1,000 ML IV SCH (02:25)
[2022-04-06 05:31] LABS: Basophils % (A) 0 %; Eosinophils % (A) 0 %; HCT 34.6 % (34.0-46.0); HGB 11.5 gm/dL (11.4-16.0); Lymphocytes # (A) 0.9 k/uL (1.0-4.8); Lymphocytes % (A) 11 %; MCH 29.9 pg (25.0-35.0); MCHC 33.2 g/dL (31.0-37.0); MCV 90.1 fL (80.0-100.0); Mean Platelet Volume 10.3; Monocytes # (A) 0.4 k/uL (0-1.0); Monocytes % (A) 4 %; Neutrophils # (A) 7.3 k/uL (1.3-7.7); Neutrophils % (A) 84 %; Platelet Count 157 k/uL (150-450); RBC 3.84 m/uL (3.80-5.40); RDW 13.3 % (11.5-15.5); WBC 8.7 k/uL (3.8-10.6)
--- NOTE | 2022-04-06 07:55 | P.PN ---
Subjective Progress Note Date: 04/06/22 Principal diagnosis: POD #1 s/p robotic assisted total laparoscopic hysterectomy, uterosacral colpopexy, transvaginal tape midurethral sling, and cystoscopy The patient is doing very well this morning. Pain is very well controlled with just Tylenol. She has been ambulating without difficulty. She has had coffee and water this morning without nausea or vomiting. She is passing flatus, no bowel movements yet. Carl catheter was just recently removed, she has not yet been able to void. She denies chest pain, shortness of breath, fevers, chills, heavy vaginal bleeding. Objective - Vital Signs Vital signs: Vital Signs Temp 98.1 F 04/06/22 00:00 Pulse 86 04/06/22 00:00 Resp 15 04/06/22 00:00 BP 95/57 04/06/22 00:00 Pulse Ox 96 04/06/22 00:00 FiO2 Intake & Output 04/05/22 04/06/22 04/06/22 18:59 06:59 18:59 Intake Total 2049 Output Total 450 1000 Balance 1600 -1000 Weight 71.1 kg Intake: IV 2049 Output: Urine 350 1000 Estimated Blood Loss 100 Other: Voiding Method Indwelling Catheter - Constitutional General appearance: Present: average body habitus - Gastrointestinal Gastrointestinal Comment(s): nondistended, nontender. Incisions clean, dry, and intact x 5. General gastrointestinal: Present: soft - Genitourinary Genitourinary Comment(s): Vaignal packing removed, pink tinged. Mensutral pad about 10% saturated. - Psychiatric Psychiatric: Present: A&O x's 3, appropriate affect, intact judgment & insight - Labs CBC & Chem 7: 04/06/22 05:08 Labs: Abnormal Lab Results - Last 24 Hours (Table) 04/06/22 Range/Units 05:08 Lymphocytes # 0.9 L (1.0-4.8) k/uL Assessment and Plan Assessment: 66 y/o with Stage 3 uterovaginal prolapse and Stress Urinary Incontinence POD#1 s/p robotic assisted total laparoscopic hysterectomy, uterosacral colpopexy, transvaginal tape midurethral sling, and cystoscopy Plan: 1. Meeting all postoperative milestones appropriately. Will await void. Encouraged patient to continue ambulation and to have a meal. 2. Patient does not want any medications to go home with. She only plans to use Tylenol and she has stool softeners at home which she was encouraged to use scheduled for at least the first two weeks. Disposition: Will discharge home after void and after tolerating breakfast. Follow up in the office in 2 weeks for incision check. Time with Patient: Less than 30
[2022-04-06 08:26] VITALS: BP 114/71; PULSE 74; RESP 16; TEMP 99.3
[2022-04-06] MEDS: SENNOSIDES-DOCUSATE SODIUM 1 EACH TAB PO SCH (08:30)
== END 2022-04-06 09:45 | disposition home or self-care (01) ==
LOC: OR 08:47 → 4FBP 14:24 → OR 04-06 09:45
PROVIDERS: ATTEND Obstetrics & Gynecology
DX: N81.4 Uterovaginal prolapse, unspecified (principal); N39.3 Stress incontinence (female) (male); I48.91 Unspecified atrial fibrillation; Z87.891 Personal history of nicotine dependence
CPT/HCPCS: 85025; 85610; 58571; 57288; 57425; J2250; J0330; J1100; J2710; J2765; J2405; J0690; J1170; J1885; J2704; J2001; 86850; 86900; 86901; 88307

== ENCOUNTER 2022-12-23 05:53 | Day surgery (SDC) | payer MEDICARE, OTHER ==
--- NOTE | 2022-12-19 15:39 | P.HPIHPCON ---
History of Present Illness H&P Date: 12/19/22 Chief Complaint: Cystocele Ms. Batres is a 67 year old who presents with cheif complaint of golf- ball sized bulge at the introitus after Robotic Assisted Total Laparoscopic Hysterectomy, BSO, Uterosacral Ligament Suspension, TVT, and Cystoscopy in March 2022. The bulge is pronounced after standing, straining, heavy lifting, or bending. She also reports urinary hesitancy when the prolapse is pushed out more. She also occasionally leaks urine and is not sure what triggers leakage but feels this happens only a few times a week. Past medical history: A. Fib, GERD, hiatal hernia, hyperlipidemia, IBS, ubmilical hernia, allergic rhinitis Medications: metoprolol 12.5mg BID, Warfarin 2mg 3x weekly, Past surgical history: cholecystectomy, cystoscopy, RTLH/BSO, TVT, uterosacral ligament suspension. Consent for Procedure: I have explained the operation/procedure to the patient, including the risks, benefits, side effects, alternative therapies (including not receiving the proposed treatment or service), the likelihood of the patient achieving his/her goals, and potential recuperation problems for the procedure/sedation/analgesia, as well as any blood products, if indicated. I also explained to the patient the risks, benefits and side effects of the alternatives, as well as the risks related to not receiving the proposed procedure, care, treatment, or services. Past Medical History Past Medical History: Atrial Fibrillation Additional Past Medical History / Comment(s): gallbladder sludge,states "feels like I am bloated and gassy,uncomfortable rt upper abd quad." History of Any Multi-Drug Resistant Organisms: None Reported Past Surgical History: Cholecystectomy, Hysterectomy Additional Past Surgical History / Comment(s): BILAT TENNIS ELBOW REPAIR. CATARACTS BILAT. REPAIR OF HOLE IN RT EYE Past Anesthesia/Blood Transfusion Reactions: No Reported Reaction, Postoperative Nausea & Vomiting (PONV) Additional Past Anesthesia/Blood Transfusion Reaction / Comment(s): no hx blood transfusion, slow to wake up Smoking Status: Never smoker - Past Family History Mother Family Medical History: No Reported History Additional Family Medical History / Comment(s): aneurysm after falling Sister(s) Family Medical History: Cancer Additional Family Medical History / Comment(s): blood CA Father Family Medical History: Myocardial Infarction ([place]) Medications and Allergies Home Medications Medication Instructions Recorded Confirmed Type Metoprolol Tartrate [Lopressor] 12.5 mg PO DAILY 01/19/18 12/16/22 History Warfarin Sodium 4 mg PO DAILY 11/02/20 12/16/22 History Allergies Allergy/AdvReac Type Severity Reaction Status Date / Time premed prior to anesthesia AdvReac Nausea & Uncoded 12/16/22 12:26 Vomiting,low b/p,low heart rate Surgical - Exam Focused physical exam is performed. This is a healthy-appearing female in no apparent distress. Breathing is non-labored. On pelvic exam, there is a stage 3 cystocele noted with valsalva. Vaginal apex is well supported. Stage 1 rectocele noted as well. Assessment and Plan Assessment: 67 year old female with grade 3 cystocele who presents for surgical management with anterior repair and cystoscopy. Plan: The risks, benefits, and alternatives to Anterior Repair with Cystoscopy were reviewed with the patient including risk of bleeding, infection, damage to surrounding structures, post-operative VTE. The patient understands these risks and desires to proceed. Time with Patient: Less than 30
[~2022-12-23 05:53] MED LIST changes: -DEXAMETHASONE SOD PHOSPHATE 4 MG/ML 1 ML VIAL IV ONE; +GENTAMICIN 300 MG in SODIUM CHLORIDE 0.9% 100 ML IVPB PRN; -HYDROmorphone 0.5 MG/0.5 ML SYRINGE IVP PRN; -LIDOCAINE 1% (10MG/ML) FOR IV START INTRADERMA PRN; -MIDAZOLAM 2 MG/2 ML VIAL IV PRN; -ONDANSETRON 4 MG/2 ML VIAL IVP ONE
[2022-12-23] MEDS ORDERED: LACTATED RINGERS 1,000 ML IV ONE ×2 (06:08→17:45)
[2022-12-23] MEDS ORDERED: ONDANSETRON 4 MG/2 ML VIAL IVP ONE (06:10)
[2022-12-23] MEDS ORDERED: DEXAMETHASONE SOD PHOSPHATE 4 MG/ML 1 ML VIAL IV ONE (06:10)
[2022-12-23] MEDS ORDERED: LIDOCAINE 1% (10MG/ML) FOR IV START INTRADERMA PRN (06:10)
[2022-12-23] MEDS ORDERED: HYDROmorphone 0.5 MG/0.5 ML SYRINGE IVP PRN (07:00)
[2022-12-23 07:03] LABS: Prothrombin Time 10.7 sec (9.0-12.0)
[2022-12-23] MEDS ORDERED: LIDOCAINE 2% INJ 20 MG/ML (2 ML VIAL) ONE (07:25)
[2022-12-23] MEDS ORDERED: ESTRADIOL 0.1 MG/GM VAGINAL CREAM 42.5 GM TUBE VAGINAL ONE ×2 (07:25→07:54)
[2022-12-23] MEDS ORDERED: SUCCINYLCHOLINE CHLORIDE 200 MG/10 ML VIAL IV ONE (07:25)
[2022-12-23] MEDS ORDERED: diphenhydrAMINE 50 MG/ML 1 ML VIAL ONE (07:25)
[2022-12-23] MEDS ORDERED: fentaNYL (PF) 50 MCG/ML 2 ML AMP ONE (07:25)
[2022-12-23] MEDS ORDERED: KETOROLAC 15 MG/ML 1 ML VIAL ONE (07:25)
[2022-12-23] MEDS ORDERED: MIDAZOLAM 2 MG/2 ML VIAL ONE (07:25)
[2022-12-23] MEDS ORDERED: PROPOFOL 10 MG/ML 20 ML VIAL IV ONE (07:25)
[2022-12-23] MEDS ORDERED: VASOPRESSIN 20 UNIT/ML 1 ML VIAL SQ ONE (07:54)
[2022-12-23] MEDS ORDERED: SIMETHICONE 80 MG CHEWABLE PO PRN (08:23)
[2022-12-23] MEDS ORDERED: KETOROLAC 15 MG/ML 1 ML VIAL IVP PRN (08:23)
[2022-12-23] MEDS ORDERED: METOCLOPRAMIDE 5 MG/ML 2 ML VIAL IVP PRN (08:23)
[2022-12-23] MEDS ORDERED: ONDANSETRON 4 MG/2 ML VIAL IVP PRN (08:23)
[2022-12-23] MEDS ORDERED: SCOPOLAMINE 1 MG/72 HR PATCH TRANSDERM STA (08:23)
--- NOTE | 2022-12-23 08:42 | P.OP ---
Date of Procedure: 12/23/22 Preoperative Diagnosis: 1. Grade 3 Cystocele Postoperative Diagnosis: 1. Grade 3 Cystocele 2. Grade 1 Enterocele Procedure(s) Performed: Anterior repair Implants: None Anesthesia: PRITI Surgeon: Purvi Shepard Computer Systems Security Analyst #1: Rojas Brothers Estimated Blood Loss (ml): 20 IV fluids (ml): 400 Urine output (ml): 20 (clear yellow) Pathology: none sent Condition: stable Disposition: floor Indications for Procedure: This is a 67 year old female with grade 3 cystocele who presents for surgical management with anterior repair and cystoscopy. The risks, benefits, and alternatives to Anterior Repair with Cystoscopy were reviewed with the patient including risk of bleeding, infection, damage to surrounding structures, post-operative VTE. The patient understands these risks and desires to proceed. Operative Findings: Grade 3 cystocele, Grade 1 enterocele. Clear urine draining from nava catheter at the end of the case, which moves freely in and out of the urethra. Description of Procedure: Prior to the beginning of the procedure the team paused to verify the patient's identity, as well as the procedure to be performed and the correct side/site. All equipment required was ready and available. The patient was positioned appropriately. Patient was cleaned and draped and legs were placed in lithotomy position using Elia stirrups. Nava catheter was placed to drain the bladder. A weighted speculum was placed in the posterior vaginal vault. Two Allis Clamps were used to grasp the vaginal mucosa along the vaginal cuff and Pitressin was injected inferior to the vaginal epithelium as a means for hydro-dissection. A horizontal incision was made in between the Allis clamps with the scalpel. A vertical midline incision was then made with Metzenbaum scissors from the level of the cuff to 1 cm inferior to the urethra. The underlying endopelvic fascia and cystocele was then dissected away from the vaginal epithelium using Metzenbaum scissors and allis clamps for retraction. The dissection was carried out to the lateral pelvic side wall on either side. 2-0 Vicryl was placed to approximate the endopelvic fascia over the cystocele, thus reducing it. Excess vaginal musosa was trimmed and the remaining vaginal mucosa was closed with 2-0 Vicryl suture. After completion of the case, a nava catheter was inserted and noted to move freely into the urethra without tension. Clear urine was noted to drain from the catheter. Excellent hemostasis was noted at the end of the case. The vagina was packed with 1-inch iodoform packing coated in vaginal estrace cream. All instruments were removed from the patient. She was cleaned, dried, and awakened from anesthesia without difficulty. Sponge, lap, instrument, and needle counts were correct x2. She was taken to the PACU in stable condition.
[2022-12-23] MEDS: LACTATED RINGERS 1,000 ML IV SCH ×2 (10:07→17:21)
[2022-12-24 00:16] VITALS: RESP 16
[2022-12-24 07:49] LABS: Basophils % (A) 0 %; Eosinophils # (A) 0.1 k/uL (0-0.7); Eosinophils % (A) 1 %; HCT 37.3 % (34.0-46.0); HGB 12.1 gm/dL (11.4-16.0); Lymphocytes # (A) 1.4 k/uL (1.0-4.8); Lymphocytes % (A) 14 %; MCH 30.5 pg (25.0-35.0); MCHC 32.6 g/dL (31.0-37.0); MCV 93.8 fL (80.0-100.0); Mean Platelet Volume 10.2; Monocytes # (A) 0.4 k/uL (0-1.0); Monocytes % (A) 4 %; Neutrophils # (A) 8.3 k/uL (1.3-7.7); Neutrophils % (A) 81 %; Platelet Count 164 k/uL (150-450); RBC 3.98 m/uL (3.80-5.40); RDW 13.9 % (11.5-15.5); WBC 10.3 k/uL (3.8-10.6)
[2022-12-24] MEDS ORDERED: ACETAMINOPHEN TAB 325 MG TAB PO PRN (08:24)
[2022-12-24 09:19] VITALS: BP 106/58; PULSE 52; TEMP 98.1
--- NOTE | 2022-12-24 11:11 | P.DS ---
Providers Date of admission: 12/23/2022 Expected date of discharge: 12/24/22 Attending physician: Purvi Shepard MD Primary care physician: Edson Gaviria [facility] Course: This is a 67-year-old who is now postop day 1 status post anterior repair for grade 3 cystocele and grade 1 enterocele. The patient is doing well this morning and has no complaints. She is tolerating by mouth without nausea or vomiting. She is ambulating without difficulty. She is voiding adequately status post catheter and had a postvoid residual of 0 mL. She denies pain, fevers or chills, lightheadedness with ambulation, pain or swelling in the legs. She desires discharge home today. Postoperative restrictions are reviewed with the patient including pelvic rest for 6 weeks, no lifting heavier than 15 pounds for 4 weeks. The patient is encouraged to call the office if she experiences any heavy bleeding, foul-smelling discharge, or any if she has any other concerns. She will follow up in the office with in 6 weeks for postoperative exam. All q uestions are answered. Assessment: 67 year old POD#1 s/p anterior repair Patient Condition at Discharge: Good Plan - Discharge Summary Discharge Rx Participant: No New Discharge Prescriptions: No Action Metoprolol Tartrate [Lopressor] 12.5 mg PO DAILY Warfarin Sodium 4 mg PO DAILY Discharge Medication List Metoprolol Tartrate [Lopressor] 12.5 mg PO DAILY 01/19/18 [History] Warfarin Sodium 4 mg PO DAILY 11/02/20 [History] Follow up Appointment(s)/Referral(s): Purvi Shepard MD [STAFF PHYSICIAN] - 6 Weeks Activity/Diet/Wound Care/Special Instructions: Postoperative Instructions 1. Do not lift anything heavier than 15 pounds for 4 weeks 2. Do not resume sexual relations for 6 weeks or longer if uncomfortable. 3. Keep any areas repaired with stitches clean and dry. 4. Call the office, , within the next week to make appointment for your 6 week checkup if it has not already been made. 5. Report any of the following occurrences to the doctor promptly: a. Heavy, excessive bleeding b. Chills, fever c. Burning or frequency of urination d. Increasing pain or swelling of vulva (stitches). Discharge Disposition: HOME SELF-CARE
== END 2022-12-24 11:45 | disposition home or self-care (01) ==
LOC: OR 05:53 → 4FBP 08:35 → OR 12-24 11:45
PROVIDERS: ATTEND Obstetrics & Gynecology
DX: N81.11 Cystocele, midline (principal); I48.91 Unspecified atrial fibrillation; Z90.710 Acquired absence of both cervix and uterus; Z90.49 Acquired absence of other specified parts of digestive tract; Z98.890 Other specified postprocedural states; Z79.899 Other long term (current) drug therapy
CPT/HCPCS: 86900; 86901; 85025; 85610; 86850; 57240; J2250; J0330; J1200; J1100; J2405; J3010; J1580; J1885; J2704; J1170; J2001